=== PATIENT | female | born 1960 | race Caucasian/White ===

== ENCOUNTER 2018-04-06 15:32 | Outpatient (CLI) | payer OTHER ==
[~2018-04-06 15:32] MED LIST: ALPRAZOLAM XR2 MG; ALPRAZOLAM0.25 MG; RESTORIL30 MG; SYNTHROID125 MCG
== END 2018-04-06 15:36 | disposition home or self-care (01) ==
LOC: SONOGRAMA 15:32
DX: E04.0 Nontoxic diffuse goiter (principal)

== ENCOUNTER 2018-04-08 15:13 | Outpatient (CLI) | payer OTHER | END 2018-04-08 17:00 | disposition home or self-care (01) | LOC: MRI 15:13 | DX: M54.14 Radiculopathy, thoracic region (principal) | CPT/HCPCS: 72148 ==

== ENCOUNTER 2018-05-27 13:32 | Outpatient (CLI) | payer OTHER | END 2018-05-27 17:00 | disposition home or self-care (01) | LOC: MRI 13:32 | DX: M54.14 Radiculopathy, thoracic region (principal) | CPT/HCPCS: 72146 ==

== ENCOUNTER 2018-06-09 15:13 | Outpatient (CLI) | payer OTHER | END 2018-06-09 15:24 | disposition home or self-care (01) | LOC: SONOGRAMA 15:13 | DX: R10.31 Right lower quadrant pain (principal); R10.32 Left lower quadrant pain; N60.41 Mammary duct ectasia of right breast; N60.42 Mammary duct ectasia of left breast ==

== ENCOUNTER 2018-10-05 09:35 | Outpatient (CLI) | payer OTHER | END 2018-10-05 09:37 | disposition home or self-care (01) | LOC: SONOGRAMA 09:35 | DX: R59.9 Enlarged lymph nodes, unspecified (principal) ==

== ENCOUNTER 2019-07-07 13:08 | Outpatient (CLI) | payer OTHER | END 2019-07-07 13:14 | disposition home or self-care (01) | LOC: LAB 13:08 | DX: N20.0 Calculus of kidney (principal) ==

== ENCOUNTER 2019-07-11 10:37 | Outpatient (CLI) | payer OTHER | END 2019-07-11 11:00 | disposition home or self-care (01) | LOC: MRI 10:37 | DX: D17.1 Benign lipomatous neoplasm of skin and subcutaneous tissue of trunk (principal) | CPT/HCPCS: 73222 ==

== ENCOUNTER 2020-09-27 13:36 | Outpatient (CLI) | payer OTHER | END 2020-09-27 13:49 | disposition home or self-care (01) | LOC: RAD 13:36 | PROVIDERS: ATTEND Internal Medicine Endocrinology, Diabetes & Metabolism | DX: M25.551 Pain in right hip (principal); M25.552 Pain in left hip; M70.40 Prepatellar bursitis, unspecified knee; M46.1 Sacroiliitis, not elsewhere classified; S33.6XXS Sprain of sacroiliac joint, sequela; M70.20 Olecranon bursitis, unspecified elbow ==

== ENCOUNTER → 2021-10-18 07:20 | Outpatient (CLI) | payer OTHER | END | disposition home or self-care (01) | LOC: NUCLEAR 07:00 | PROVIDERS: ATTEND Internal Medicine Gastroenterology | DX: R10.10 Upper abdominal pain, unspecified (principal); R14.0 Abdominal distension (gaseous); R14.1 Gas pain | CPT/HCPCS: 78226; A9510 ==